=== PATIENT | female | born 1970 | race Hispanic/Latino ===

== ENCOUNTER → 2017-11-08 | Day surgery (SDC) | payer BC ==
[2017-11-07 11:41] VITALS: BMI 33.6
[2017-11-08 07:39] LABS: #Basophils 0.1 thou/uL (0.0-0.2); #Eosinphils 0.2 thou/uL (0.0-0.7); #Lymphocytes 3.2 thou/uL (1.20-3.40); #Monocytes 0.4 thou/uL (0.11-0.59); #Neutrophils 4.1 thou/uL (1.40-6.50); %Basophils 0.8 % (0.0-1.0); %Lymphocytes 40.4 % (21.0-51.0); %Monocytes 4.9 % (0.0-10.0); %Neutrophils 50.9 % (42.0-75.0); Hemoglobin 13.2 g/dL (12.0-16.0); Mean Corpuscular HGB CONC 33.2 g/dL (32.0-36.0); Mean Corpuscular Hemoglobin 30.9 pg (27.0-31.0); Mean Corpuscular Volume 92.9 fL (78.0-98.0); Platelet Count 288 thou/uL (130-400); RBC Distribution Width 11.4 % (11.5-14.5); Red Blood Cell (RBC) Count 4.28 mill/uL (4.20-5.40)
[2017-11-08 07:48] LABS: INR-International Normal Ratio 0.9; PTT 33.6 SEC (22.9-36.1); Prothrombin Time 12.5 SEC (12.0-14.7)
[2017-11-08 08:16] VITALS: TEMP 97.6
--- NOTE | 2017-11-08 11:19 | ULT ---
SONOGRAPHIC GUIDED HEPATIC BIOPSY: History: Hepatitis C. FINDINGS: After explaining the procedure and answering all questions, sonographic survey shows left liver lobe below the xiphoid. Conscious sedation: 0.5 mg Versed, IV. 25 microgram Fentanyl, IV. Sterile technique, buffered local anesthesia, sonographic guidance, conscious sedation and a subxipho id approach were used to carefully advance a 17 gauge Trocar needle into the left liver lobe. Positio n was confirmed with sonography. A total of two core 18 gauge biopsy specimens were obtained and even tually submitted to pathology for evaluation. Post procedure imaging shows no evidence of complicatio n. Patient tolerated the procedure well and was returned to the holding area in good condition for fu rther monitoring. IMPRESSION: Technically successful sonographically guided random hepatic biopsy. Pathology is pending. POS: KP
== END ==
LOC: ULT 07:23
PROVIDERS: ATTEND Radiology Diagnostic Radiology
PROC: 0FB23ZX Excision of Left Lobe Liver, Percutaneous Approach, Diagnostic (ICD-10-PCS; principal; 2017-11-08)
DX: K75.81 Nonalcoholic steatohepatitis (NASH) (principal); Z86.19 Personal history of other infectious and parasitic diseases; Z88.0 Allergy status to penicillin; Z91.013 Allergy to seafood; Z79.899 Other long term (current) drug therapy
CPT/HCPCS: 47000; 76942; 85025; 85610; 85730; 88307; 88313